=== PATIENT | male | born 1970 | race Caucasian/White ===

== ENCOUNTER 2023-08-12 09:47 | Emergency (ER) | payer OTHER ==
[~2023-08-12] VITALS: Ht 182.9 cm; Wt 96.6 kg
[2023-08-12] MEDS ORDERED: TRUVADA 100 MG1 EACH PO (10:21)
== END 2023-08-12 12:34 | disposition home or self-care (01) ==
LOC: ER 09:47
PROVIDERS: General Practice
DX: L03.115 Cellulitis of right lower limb (principal); Z88.8 Allergy status to other drugs, medicaments and biological substances

== ENCOUNTER 2023-08-19 13:14 | Emergency (ER) | payer OTHER ==
[~2023-08-19] VITALS: Ht 185.4 cm; Wt 96.6 kg
[~2023-08-19 13:14] MED LIST: TRUVADA 100 MG1 EACH PO
== END 2023-08-19 18:32 | disposition home or self-care (01) ==
LOC: ER 13:14
DX: L03.119 Cellulitis of unspecified part of limb (principal)

== ENCOUNTER 2025-04-07 13:53 | Emergency (ER) | payer OTHER ==
[~2025-04-07] VITALS: Ht 185.4 cm; Wt 95.3 kg
[2025-04-07] MEDS ORDERED: CEFTRIAXONE SODIUM 1,000 MG VIAL ONE (17:04)
[2025-04-07] MEDS ORDERED: CEFTRIAXONE SODIUM 1,000 MG VIAL IM ONE (17:15)
== END 2025-04-07 18:02 | disposition home or self-care (01) ==
LOC: ER 14:16
DX: K62.89 Other specified diseases of anus and rectum (principal); R19.8 Other specified symptoms and signs involving the digestive system and abdomen; Z72.51 High risk heterosexual behavior